=== PATIENT | male | born 1960 | race Caucasian/White ===

== ENCOUNTER 2019-11-01 21:05 | Emergency (ER) | payer BC ==
[2019-11-01] MEDS ORDERED: HYDROcodone/Acetaminophen 5/325 mg Tablet ONE (22:09)
[2019-11-01] MEDS ORDERED: Acetaminophen 325 MG TAB ONE (22:09)
--- NOTE | 2019-11-01 22:42 | RAD ---
Radiograph left shoulder 3 views: HISTORY: 59-year-old male with acute left traumatic shoulder pain FINDINGS: No acute fracture. No dislocation of glenohumeral joint. Distal tip of clavicle is truncated, resulti ng in a widened AC joint space. Craniocaudal step off between the clavicle and acromion. Tiny round calcific density within the superior aspect of the joint space. IMPRESSION: 1. No acute fracture. 2. Widening of the acromioclavicular joint. Chronic versus acute.
== END 2019-11-01 22:23 | disposition home or self-care (01) ==
LOC: MADERS 21:05
DX: S43.52XA Sprain of left acromioclavicular joint, initial encounter (principal); S60.511A Abrasion of right hand, initial encounter; I10 Essential (primary) hypertension; W17.89XA Other fall from one level to another, initial encounter